=== PATIENT | male | born 1975 | race Caucasian/White ===

== ENCOUNTER → 2017-07-03 | Outpatient (CLI) | payer MEDICAID, SELFPAY | LOC: M CARPUL 10:48 | DX: R91.8 Other nonspecific abnormal finding of lung field (principal) | CPT/HCPCS: 94060 ==

== ENCOUNTER → 2017-09-04 | Outpatient (CLI) | payer OTHER, MEDICAID ==
[~2017-09-04] MED LIST: METHACHOLINE KIT (J7674) INH
== END ==
LOC: M CARPUL 10:33
DX: R05 Cough (principal)
CPT/HCPCS: J7674

== ENCOUNTER → 2020-04-22 | Outpatient (CLI) | payer SELFPAY | LOC: M LABSMTC 14:42 | PROVIDERS: ATTEND Pediatrics | DX: Z20.828 Contact with and (suspected) exposure to other viral communicable diseases (principal) ==

== ENCOUNTER → 2021-03-10 | Outpatient (CLI) | payer OTHER ==
--- NOTE | 2021-03-10 14:15 | REP ---
INDICATION: ABNORMAL FINDING LUNG FIELD COMPARISON: Multiple the latest 02/03/2020 TECHNIQUE: Standard helical technique without intravenous contrast administration FINDINGS: The mediastinum and pulmonary sandrine are stable. There is no evidence of a mass or adenopathy. There are no pleural or pericardial effusions. The imaged upper abdomen and imaged osseous structures are unchanged. Evaluation of the lung gaming shows they 6 mm size nodule seen previously in the superior segment of the right lower lobe to be partially obscured by respiratory motion artifact. It appears less dense. It has not gotten significantly larger. The pleural base nodule seen in the right upper lobe is unchanged. The pleural base nodule seen in the left lower lobe is unchanged. No new abnormal nodules, masses, or opacities have developed. IMPRESSION: No significant change from the prior exam. According to the revised Fleischner society criteria lung rads category 2 exam. Yearly follow-up is recommended if clinically relevant. <Electronically signed by Mike Granger > 03/10/21 [id number]
== END ==
LOC: M PLAIMG 13:19
PROVIDERS: ATTEND Internal Medicine Pulmonary Disease
DX: R91.8 Other nonspecific abnormal finding of lung field (principal)

== ENCOUNTER → 2022-03-23 | Outpatient (CLI) | payer OTHER | LOC: M RAD 07:06 | PROVIDERS: ATTEND Nurse Practitioner | DX: R30.0 Dysuria (principal) ==

== ENCOUNTER → 2022-03-23 | Outpatient (CLI) | payer OTHER | LOC: M RAD 07:07 | PROVIDERS: ATTEND Nurse Practitioner Family | DX: R91.8 Other nonspecific abnormal finding of lung field (principal) ==

== ENCOUNTER → 2022-10-08 | Outpatient (CLI) | payer OTHER | LOC: M SLEEP HO 11:35 | PROVIDERS: ATTEND Nurse Practitioner Family | DX: G47.33 Obstructive sleep apnea (adult) (pediatric) (principal) ==

== ENCOUNTER → 2022-11-22 | Outpatient (CLI) | payer OTHER | LOC: M SLEEP 20:00 | PROVIDERS: ATTEND Nurse Practitioner Family | DX: G47.33 Obstructive sleep apnea (adult) (pediatric) (principal) ==